=== PATIENT | male | born 1955 | race Caucasian/White ===

== ENCOUNTER 2018-10-17 11:30 | Emergency (ER) | payer MEDICAID ==
[~2018-10-17] VITALS: Ht 167.6 cm; Wt 73.0 kg
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
[2018-10-17] MEDS ORDERED: NALT50TA PO (11:57)
[2018-10-17] MEDS ORDERED: GABA300C10 PO (11:57)
[2018-10-17] MEDS ORDERED: HYDR-3653 PO (11:57)
[2018-10-17] MEDS ORDERED: AMLO-150 PO (11:57)
[2018-10-17] MEDS ORDERED: METO25TA35 PO (11:57)
[2018-10-17] MEDS ORDERED: MAGN400T36 PO (11:57)
[2018-10-17] MEDS ORDERED: ATOR40TA PO (11:57)
[2018-10-17] MEDS ORDERED: DOXY100T9 PO (11:57)
[2018-10-17] MEDS ORDERED: IBUP-1222 PO (11:57)
[2018-10-17] MEDS ORDERED: BICA50TA5 PO (11:57)
[2018-10-17] MEDS ORDERED: HYDR25TA11 PO (11:57)
[2018-10-17] MEDS ORDERED: ONDANSETRON ODT 4 MG PO ONE (12:00)
[2018-10-17 12:22] LABS: BASOPHILS # (AUTO) 0.03 x10^3/uL (0-0.1); BASOPHILS % (AUTO) 1 % (0-1); EOSINOPHILS # (AUTO) 0.08 x10^3/uL (0-0.4); EOSINOPHILS % (AUTO) 2 % (1-7); LYMPHOCYTES # (AUTO) 0.49 x10^3/uL (1-3.4); LYMPHOCYTES % (AUTO) 10 % (22-44); MD NO; MEAN CORPUSCULAR HEMOGLOBIN 30.4 pg (27.5-34.5); MEAN CORPUSCULAR HGB CONC 33.8 g/dL (33.2-36.2); MEAN CORPUSCULAR VOLUME 89.8 fL (81-97); MEAN PLATELET VOLUME 8.3 fL (7.4-10.4); MONOCYTES # (AUTO) 0.59 x10^3/uL (0.2-0.8); MONOCYTES % (AUTO) 12 % (2-9); NEUTROPHILS # (AUTO) 3.63 x10^3/uL (1.8-6.8); NEUTROPHILS % (AUTO) 75 % (42-75); PLATELET COUNT 445 x10^3/uL (130-400); RED BLOOD COUNT 3.91 x10^6/uL (4.38-5.82); RED CELL DISTRIBUTION WIDTH 15.7 % (9.4-14.8)
[2018-10-17 12:33] LABS: ANION GAP 7 mmol/L (5-15); CALCIUM 8.6 mg/dL (8.5-10.1); CHLORIDE 105 mmol/L (98-107)
[2018-10-17] MEDS ORDERED: ONDANSETRON ODT 4 MG ONE (12:37)
[2018-10-17 12:38] LABS: ALANINE AMINOTRANSFERASE 17 U/L (12-78); ALKALINE PHOSPHATASE 133 U/L (45-117); BILIRUBIN,TOTAL 0.2 mg/dL (0.2-1.0); CREATININE 0.94 mg/dL (0.7-1.3); TOTAL PROTEIN 6.8 g/dL (6.4-8.2)
--- NOTE | 2018-10-17 12:39 | NUR ---
TASK RN: PT MEDICATED PER EMAR.
--- NOTE | 2018-10-17 12:49 | NUR ---
PT WALKING TO NURSE DESK STATING "I'M GOOD NOW, CAN YOU CALL THESE PEOPLE FOR A RIDE HOME?". RN LET PT KNOW WE ARE WAITING ON RECHECK BY ERMD. PT NOW RESTING ON GURNEY. NAD NOTED. SKIN PWD. RESP EVEN AND EQAUL. CALL LIGHT WITHIN REACH. WILL COTN TO MONITOR PT.
--- NOTE | 2018-10-17 14:00 | NUR ---
REPORT TO SYLVIE SIMPSON WHO ASSUMED CARE OF PT.
[2018-10-17 14:09] VITALS: BP 175/93
--- NOTE | 2018-10-17 14:21 | NUR ---
DC EDUCATION PROVIDED, PT DEMONSTRATES UNDERSTANDING. THIS RN SPOKE WITH KRISTINA CARBALLO BLOOD BANK COORDINATOR WHO SUGGESTS PT BE SENT TO [facility] BY [facility] AND PROVIDED ADDRESS. PT PROVIDED [facility] VOUCHER FOR SAFE TRANSPORT.
== END 2018-10-17 14:25 | disposition home or self-care (01) ==
LOC: ED 14:02
DX: R11.2 Nausea with vomiting, unspecified (principal); I10 Essential (primary) hypertension; F17.200 Nicotine dependence, unspecified, uncomplicated; Z59.0 Homelessness
CPT/HCPCS: 36415; 71045; 80053; 84145; 85025; 93005; 99284; Q0162

== ENCOUNTER 2019-07-13 11:47 | Emergency (ER) | payer MEDICAID ==
[~2019-07-13] VITALS: Ht 167.6 cm; Wt 70.0 kg
[~2019-07-13 11:47] MED LIST: AMLO-150 PO; ATOR40TA PO; BICA50TA5 PO; DOXY-162 PO; GABA300C10 PO; HYDR-3653 PO; HYDR-826 PO; IBUP-1222 PO; MAGN400T36 PO; METO25TA35 PO; NALT50TA PO
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
[2019-07-13] MEDS ORDERED: CALAMINE LOTION 180ML TP PRN (13:30)
[2019-07-13] MEDS ORDERED: hydrOXyzine 50MG TABLET ONE (13:57)
--- NOTE | 2019-07-13 14:02 | NUR ---
MEDICATED PER ORDERS, ORDERED LOTION VIA PHARMACY
--- NOTE | 2019-07-13 14:15 | NUR ---
PT ATE 100% MEAL, DRINKING FLUIDS WELL
--- NOTE | 2019-07-13 14:17 | NUR ---
CALLED SW REGARDING MD REQUEST FOR POSSIBLE PLACEMENT ISSUES AND NEEDS
--- NOTE | 2019-07-13 15:08 | NUR ---
LOTION APPLIED ALL OVER PATIENT, PROVIDED CLEAN CLOTHES AND NEW COAT TO PATIENT.
--- NOTE | 2019-07-13 15:17 | NUR ---
TAYLA IN ROOM, BUS PASS GIVEN Patient given discharge instructions and they have confirmed that they understand the instructions. Patient ambulatory with steady gait.
[2019-07-13 15:18] VITALS: BP 94/74
== END 2019-07-13 15:26 | disposition home or self-care (01) ==
LOC: ED 15:20
DX: B86 Scabies (principal); I10 Essential (primary) hypertension; F17.200 Nicotine dependence, unspecified, uncomplicated
CPT/HCPCS: 99283; J7512; Q0177